=== PATIENT | female | born 1955 | race Caucasian/White ===

== ENCOUNTER 2016-09-22 05:30 | Day surgery (SDC) | payer OTHER ==
--- NOTE | ~2016-09-22 | EGD ---
EGD REPORT [facility] [address] [place] [address] NAME: ISAEL PERALTA : 55 STATUS : REG [facility] PAT#: [id number] AGE: 61 ADM/REG DATE : 09/22/16 MR#: [id number] REPORT SERV DATE: 09/22/16 DICTATED BY: QING DANIELS DATE: 09/22/16 REPORT STATUS : Draft TRANSCRIBED BY: [facility] DATE: 09/22/16 Endoscopy Center Patient Name: Isael Peralta Date of : 1955 Attending MD: MULU DANIELS MD Procedure Date No Time: 09/22/2016 Procedure: Colonoscopy Indications: High risk colon cancer surveillance: Personal history of colonic polyps, Last colonoscopy: March 2012 Referring MD: AMINA FORMAN MD Medicines: See the Anesthesia note for documentation of the administered medications Complications: No immediate complications. Estimated blood loss: None. Procedure: Pre-Anesthesia Assessment: - ASA Grade Assessment: II - A patient with mild systemic disease. After I obtained informed consent, the scope was passed under direct vision. Throughout the procedure, the patient's blood pressure, pulse, and oxygen saturations were monitored continuously. The PCF [id number] was introduced through the anus and advanced to the terminal ileum. The ileocecal valve, appendiceal orifice, terminal ileum and rectum were photographed. The entire colon was examined. The colonoscopy was performed without difficulty. The patient tolerated the procedure well. The quality of the bowel preparation was adequate. Findings: The perianal and digital rectal examinations were normal. The terminal ileum appeared normal. A sessile polyp was found at the hepatic flexure. The polyp was 5 mm in size. The polyp was removed with a cold snare. Resection and retrieval were complete. Non-bleeding internal hemorrhoids were found during retroflexion and were Grade I (internal hemorrhoids that do not prolapse). No other significant abnormalities were identified in a careful examination of the remainder of the colon. Impression: - The examined portion of the ileum was normal. - One 5 mm polyp at the hepatic flexure. Resected and retrieved. - Non-bleeding internal hemorrhoids. Recommendation: - Patient has a contact number available for emergencies. The signs and symptoms of potential delayed EGD REPORT [address] [address] NAME: ISAEL PERALTA : 55 STATUS : REG [facility]#: [id number] AGE: 61 ADM/REG DATE : 09/22/16 MR#: [id number] REPORT SERV DATE: 09/22/16 DICTATED BY: QING DANIELS DATE: 09/22/16 REPORT STATUS : Draft TRANSCRIBED BY: [facility] DATE: 09/22/16 complications were discussed with the patient. Return to normal activities tomorrow. Written discharge instructions were provided to the patient. - Regular diet. - Discharge patient to home. - Continue present medications. - Await pathology results. - Repeat colonoscopy in 5 years for surveillance. Procedure Code(s): --- Professional --- 29195, Colonoscopy, flexible, proximal to splenic flexure; with removal of tumor(s), polyp(s), or other lesion(s) by snare technique Diagnosis Code(s): --- Professional --- K64.0, First degree hemorrhoids D12.3, Benign neoplasm of transverse colon Z86.010, Personal history of colonic polyps CPT copyright 2013 [employer]. All rights reserved. The codes documented in this report are preliminary and upon transcription typist review may be revised to meet current compliance requirements. MULU DANIELS MD 09/22/2016 7:24 AM This report has been signed electronically. Number of Addenda: 0 Note Initiated On: 09/22/2016 6:56 AM Scope Withdrawal Time 0 hours 10 minutes 31 seconds [id number] [id number]
[~2016-09-22 05:30] MED LIST: ALEVE220 MG PO; ASAB PO; BIOTIN10 MG OR; CALTRA600D PO; CENTRUM PO; CLIMARA0.05 MG TD; COZAAR100 MG PO; FISH-EPA1000 MG PO; FLEX PO; GLUCCHONDR PO; IBU800 PO; METANX PO; NEUR100 PO; NEUR400 PO; NEUR600 PO; NORCO1 TAB PO; PENVK250 PO; PRILOSEC40 MG PO; PROBIOTIC PO; REQUIP25 PO; TOPXL25 PO; TOPXL50 PO; VITAMIN D31000 UNIT PO; ZOCOR20 PO; ZYRTEC ALLGY10 MG PO
[2016-10-13] MEDS ORDERED: PRILOSEC40 MG PO (14:10)
[2016-10-13] MEDS ORDERED: BACTRONASA NAS (14:14)
== END 2016-09-22 23:59 | disposition home or self-care (01) ==
LOC: DMU 05:30
PROVIDERS: Internal Medicine Gastroenterology
PROC: 0DBK8ZX Excision of Ascending Colon, Via Natural or Artificial Opening Endoscopic, Diagnostic (ICD-10-PCS; principal; 2016-09-22 07:00)
DX: Z12.11 Encounter for screening for malignant neoplasm of colon (principal); Z86.010 Personal history of colon polyps; Z79.899 Other long term (current) drug therapy; Z79.2 Long term (current) use of antibiotics; Z79.82 Long term (current) use of aspirin; Z79.1 Long term (current) use of non-steroidal anti-inflammatories (NSAID); Z90.710 Acquired absence of both cervix and uterus; Z90.49 Acquired absence of other specified parts of digestive tract; K64.0 First degree hemorrhoids; D12.2 Benign neoplasm of ascending colon; Z98.1 Arthrodesis status; K44.9 Diaphragmatic hernia without obstruction or gangrene; K58.9 Irritable bowel syndrome, unspecified; I10 Essential (primary) hypertension; E89.0 Postprocedural hypothyroidism; E78.00 Pure hypercholesterolemia, unspecified; M19.90 Unspecified osteoarthritis, unspecified site
CPT/HCPCS: 88305; A9270-GY; J0290; J1580

== ENCOUNTER 2016-10-19 10:03 | Inpatient (IN) | payer OTHER ==
[2016-10-11 11:11] LABS: BASOPHILS 0.5 %; BASOPHILS ABSOLUTE 0.03 10/3/uL (0.0-0.16); EOSINOPHILS 3.3 %; EOSINOPHILS ABSOLUTE 0.22 10/3/uL (0.0-0.53); HEMATOCRIT 38.2 % (36.0-48.0); IMMATURE GRANULOCYTES 0.2 %; IMMATURE GRANULOCYTES ABSOLUTE 0.01 10/3/uL (0.0-0.11); LYMPHOCYTES 34.7 %; MEAN CORPUS HGB CONC 31.4 g/dL (32.0-36.0); MEAN PLATELET VOLUME 9.6 fL (9.2-13.0); MONOCYTES 8.6 %; MONOCYTES ABSOLUTE 0.57 10/3/uL (0.21-1.20); NEUTROPHILS 52.7 %; PLATELET COUNT 274 10/3/uL (150-400); RBC DISTRIBUTION WIDTH 13.4 % (12.0-16.0); RED CELL COUNT 4.45 10/6/uL (4.0-5.6); WHITE BLOOD CELLS 6.6 10/3/uL (4.5-10.5)
[2016-10-11 11:17] LABS: MANUAL DIFF NO %; MEAN CORPUSCULAR VOLUME 85.8 fL (80-100)
[2016-10-11 11:28] LABS: INTERNATIONAL NORMAL RATI 1.1 UNITS (-); PROTIME (NOT ORD) 14.3 SEC (12.0-14.5)
[2016-10-11 11:29] LABS: A/G RATIO 1.3 (0.7-1.9); ALBUMIN 4.1 G/DL (3.5-5.0); ALKALINE PHOSPHATASE 80 U/L (45-117); CALCIUM, SERUM 9.6 MG/DL (8.5-10.4); CHLORIDE, SERUM 107 MMOL/L (96-112); CO2 (CARBON DIOXIDE) 29 MMOL/L (24-34); CREATININE 0.61 MG/DL (0.55-1.02); GFR AFRICAN AMERICAN 113 ML/MIN (>=60); GFR NON AFRICAN AMERICAN 98 ML/MIN (>=60); GLOBULIN 3.2 G/DL (2.5-4.1); GLUCOSE, SERUM 103 MG/DL (60-99); POTASSIUM, SERUM 3.8 MMOL/L (3.5-5.3); SGOT(AST) 22 U/L (5-40); SGPT(ALT) 38 U/L (5-65); SODIUM, SERUM 142 MMOL/L (135-148); TOTAL BILIRUBIN 0.5 MG/DL (0-1.2); TOTAL PROTEIN 7.3 G/DL (6.0-8.5)
[2016-10-11 11:30] LABS: BUN (BLOOD UREA NITROGEN) 15 MG/DL (6-23)
[2016-10-11 12:11] LABS: ASCORBIC ACID (UR NOT ORDER) NEG (NEG); BILIRUBIN, URINE NEGATIVE (NEG); KETONE, URINE NEGATIVE (NEG); LEUKOCYTE ESTERASE(NOT OR SMALL (NEG); WBC (NOT ORDERED) (RFLEX) 3 (0-5)
--- NOTE | ~2016-10-19 | DS ---
Discharge Summary [facility] [address] [place]. [address] NAME: ISAEL NEGRO : 55 STATUS : DIS IN PAT#: [id number] AGE: 61 ADM/REG DATE : 10/19/16 MR#: [id number] REPORT SERV DATE: 11/07/16 DICTATED BY: JEANNETTE CHESTER DATE: 11/06/16 REPORT STATUS : Draft TRANSCRIBED BY: OBEY DATE: 11/06/16 Data Collection from hospitalization DISCHARGE DIAGNOSES: 1. Severe bilateral knee degenerative joint disease. 2. Hypertension. 3. Gastroesophageal reflux disease. CONSULTATIONS: None. PROCEDURES PERFORMED: Bilateral posterior stabilized total knee replacement, cemented, 10/19/2016. PATHOLOGY: Bone and soft tissue, right knee, total knee arthroplasty degenerative changes, fatty marrow with medullary fibrosis, synovium with diffuse papillary hyperplasia, no tumor or active inflammation. Bone and soft tissue, left knee, total knee arthroplasty degenerative changes, fatty marrow with medullary fibrosis, synovium with diffuse papillary hyperplasia, no tumor or active inflammation. MEDICATIONS: Neurontin 500 mg twice daily, Cozaar 100 mg at bedtime, ferrous sulfate 300 mg with breakfast and supper, Colace 100 mg twice daily, Theragran tablet without minerals one daily, Toprol-XL 50 mg at bedtime, fish oil 500 mg daily at bedtime, Prilosec 40 mg as needed, pen VK 250 mg twice daily, MiraLAX powder one packet daily, Requip two tablets at bedtime, Florastor one daily, Senokot two tablets at bedtime, Zocor 20 mg at bedtime, Coumadin as directed, Tylenol 650 mg every four hours as needed, Mylanta 30 mL as needed, Dulcolax 15 mg as needed, Flexeril 10 mg every 8 hours as needed, Benadryl 25 mg every 6 hours as needed, Marinol 5 mg every 8 hours as needed, Rosepine 7.5/325 one every 4 hours as needed, milk of magnesia 30 mL as needed, Zofran 4 mg every four hours as needed, and MiraLAX powder one packet twice daily as needed. CONDITION AT DISCHARGE: Upon discharge, she did appear to be doing well and had no complaints. DISPOSITION: She was discharged with transfer to [facility] to continue a regular diet with activity as discussed. She was to follow up with me in the [email or web address] office on 11/02/2016. HOSPITAL COURSE: This 61-year-old female was seen in the clinic with complaints of minor-to- severe intermittent bilateral knee pain. The approximate date of onset was 06/2016. She had stated her pain was not due to an accident or injury. The location of her knee pain was medial and across the patella. Symptoms included weakness, giving way, popping, pain, stiffness, tightness, and swelling. Her pain was intensified by standing too long, walking, lying supine and side-lying, trying to stand from a seated position, and squatting and kneeling in [id number] motion. She had related difficulty with stairs, walking, and getting in and out of a car. Her pain was worse at night upon arising and with activity. History of treatment included Aleve with relief. She denied any prior physical therapy but did state prior injection with relief for one month. She was now admitted for surgery and further treatment. Upon admission to the hospital, she had been taken to the operating room where she did undergo the above procedure. She tolerated this well and was transferred to [address] [address] NAME: ISAEL NEGRO : 55 STATUS : DIS IN PAT#: [id number] AGE: 61 ADM/REG DATE : 10/19/16 MR#: [id number] REPORT SERV DATE: 11/07/16 DICTATED BY: JEANNETTE CHESTER DATE: 11/06/16 REPORT STATUS : Draft TRANSCRIBED BY: OBEY DATE: 11/06/16 the recovery room. On postop day #1, she did appear to be doing well and had no new complaints. She did, however, have some complaints of dizziness and lightheadedness when standing. Her hemoglobin was at 8.5 and hematocrit 26.0. She was continued on her current medications. She had been evaluated by Physical Therapy. On postop day #2, she did still have complaints of dizziness and lightheadedness when standing. Her hemoglobin had dropped back to 7.0, hematocrit 22.1, and INR was at 1.2. She was continued on supportive care and did undergo transfusion with 2 units of packed red blood cells secondary to acute blood loss anemia. She was encouraged to ambulate with physical therapy. On postop day #3, her hemoglobin and hematocrit post transfusion were 8.9 and 26.8 respectively. She did remain in stable condition and was ambulating with physical therapy. On postop day #4, the patient did appear to be okay with rehab placement which was being recommended to her. Her INR was at 1.3 and her incision did look good. She did remain in stable condition, and as she continued to improve, she was then discharged on 10/25/2016 with the above instructions. Information collected by: Brian Dupree. I submit the above information as my discharge summary. JEREMI/MODL Jalil Chester M.D. / [id number] CC: Enrique Dodge M.D. [facility]
--- NOTE | ~2016-10-19 | OP ---
Record Of Operation [facility] [address] [place]. [address] NAME: ISAEL NEGRO : 55 STATUS : ADM IN PAT#: [id number] AGE: 61 ADM/REG DATE : 10/19/16 MR#: [id number] REPORT SERV DATE: 10/20/16 DICTATED BY: JEANNETTE CHESTER DATE: 10/20/16 REPORT STATUS : Draft TRANSCRIBED BY: MODL DATE: 10/20/16 DATE OF PROCEDURE: 10/19/2016 PREOPERATIVE DIAGNOSIS: Severe bilateral knee degenerative joint disease. POSTOPERATIVE DIAGNOSIS: Severe bilateral knee degenerative joint disease. OPERATION: Bilateral posterior stabilized total knee replacement, cemented. SIDE: Right and left. SIZE: See chart. ANESTHESIA: See chart. ESTIMATED BLOOD LOSS: About 10 mL, each knee. TOURNIQUET TIME: Approximately 1 hour and 10 minutes. COMPLICATIONS: None. SPECIMENS: Articular surfaces. PROCEDURE: The patient was appropriately identified and marked. The operative side agreed with the consent form and it was checked by all members of the surgical team. The patient was taken to the operating room and anesthesia was induced per the anesthesiologist. The patient was carefully transferred to the operating table without incident. The patient received appropriate prophylactic antibiotics and a Montes De Oca catheter was placed in the standard sterile technique. The patient was then carefully positioned, padded, prepped and draped in the normal sterile fashion. The operative leg had been appropriately identified and checked by all members of the operating team against the consent form and found to be the correct limb. The patient's lower extremity was then exsanguinated with an Callum wrap and a tourniquet was inflated to 350 mmHg. Sharp dissection was carried out through a straight midline longitudinal incision and electrocautery through the fat. Sharp quad splitting approach was carried out between about the medial 10 percent of the tendon and the lateral 90 percent of the tendon and down around the medial aspect of the patella and then 1 cm medial to the tibial tubercle. The patella was carefully everted and the posterior fat pad was excised and gentle MCL elevation was carried out off the proximal medial tibia subperiosteally. IM guide was placed in the distal femur after using the appropriate drill. The distal femoral cutting guide was held with 2 pins and the distal cut made. Meniscal fragments and the ACL and the PCL were excised with electrocautery, carefully staying anterior to the posterior fat pad. The proximal tibial alignment guide was set appropriately and the proximal tibial cut made. Spacer block verified full extension with excellent mediolateral balance. Sizing guide was used to place 2 drill holes in the distal femur and the four-in-one cutting block was then placed, impacted and checked Record Of Operation [facility] [address] [place]. [address] NAME: ISAEL NEGRO : 55 STATUS : ADM IN PAT#: [id number] AGE: 61 ADM/REG DATE : 10/19/16 MR#: [id number] REPORT SERV DATE: 10/20/16 DICTATED BY: JEANNETTE CHESTER DATE: 10/20/16 REPORT STATUS : Draft TRANSCRIBED BY: OBEY DATE: 10/20/16 to be sure it would not notch with an jackie wing and it was held with 2 pins. The anterior cut, posterior cut, anterior chamfer and posterior chamfer cuts were made. The pins were removed and the block was removed. A posterior release was carried out with a curved 3/4 inch osteotome staying right on the bone posteriorly. The box-cut guide was then placed, impacted and held with 2 pins and a reciprocating saw was used to cut out the box. With the trial components in place, there was excellent medial/lateral balance. The patella was then measured with a caliper, cut first with an oscillating saw and then reamed with a patella reamer. With the trial patella in place, there was excellent patellar tracking. Rotation was marked on the tibia and the tibia prepared with a drill and stamp chisel. All surfaces were then copiously irrigated with pulsatile lavage, carefully dried and then vacuum-mixed cement was pressurized with a cement gun in a doughy phase. The tibial component was placed, impacted and excess cement was removed. The cement was then pressurized in the femur and placed on the posterior runners of the femoral component, which was placed, impacted and excess cement removed and the knee was brought out into extension on a trial spacer. The cement was then pressurized in the patella. Patellar component was then placed, clamped and excess cement was removed. Once all cement was hardened, the knee was taken through range of motion. Further extruded cement was removed with a small osteotome. Then based on the trial inserts, we decided on the actual insert, which was placed in the standard fashion and held with a locking mechanism. The knee was then copiously irrigated and then closed in a layered fashion over a medium Hemovac drain superolaterally with interrupted #1 in the deep fascia, 2-0 subcutaneous and nieves in the skin. The wounds were dressed sterilely and the tourniquet was deflated. After completion of the first knee and discussion with the anesthesiologist, all parameters were acceptable and we decided to proceed with the second knee. Same procedure as that dictated above was carried out on the contralateral knee. The contralateral leg was again appropriately identified and checked by all members of the operating team against the consent form and found to be the correct limb. The patient's lower extremity was then exsanguinated with an Callum wrap and a tourniquet was inflated to 350 mmHg. Sharp dissection was carried out through a straight midline longitudinal incision and electrocautery through the fat. Sharp quad splitting approach was carried out between about the medial 10 percent of the tendon and the lateral 90 percent of the tendon and down around the medial aspect of the patella and then 1 cm medial to the tibial tubercle. The patella was carefully everted and the posterior fat pad was excised and gentle MCL elevation was carried out off the proximal medial tibia subperiosteally. IM guide was placed in the distal femur after using the appropriate drill. The distal femoral cutting guide was held with 2 pins and the distal cut made. Meniscal fragments and the ACL and the PCL were excised with electrocautery, carefully staying anterior to the posterior fat pad. The proximal tibial alignment guide was set appropriately and the proximal tibial cut made. Spacer block verified full extension with excellent mediolateral balance. Sizing guide was used to place 2 drill holes in the distal femur and the four-in-one cutting block was then placed, impacted and checked to be sure it would not notch with an jackie wing and it was held with 2 pins. The anterior cut, posterior cut, anterior chamfer and posterior chamfer cuts were made. The pins were removed and the block was removed. A posterior release was carried out with a curved 3/4 inch osteotome staying right on the bone posteriorly. The box cut guide was then placed, impacted and held with 2 pins and a reciprocating saw was used to Record Of Operation [place] [address] [place]. [address] NAME: ISAEL NEGRO : 55 STATUS : ADM IN PAT#: [id number] AGE: 61 ADM/REG DATE : 10/19/16 MR#: [id number] REPORT SERV DATE: 10/20/16 DICTATED BY: JEANNETTE CHESTER DATE: 10/20/16 REPORT STATUS : Draft TRANSCRIBED BY: OBEY DATE: 10/20/16 cut out the box. With the trial components in place, there was excellent medial/lateral balance. The patella was then measured with a caliper, cut first with an oscillating saw and then reamed with a patella reamer. With the trial patella in place, there was excellent patellar tracking. Rotation was marked on the tibia and the tibia prepared with a drill and stamp chisel. All surfaces were then copiously irrigated with pulsatile lavage, carefully dried and then vacuum-mixed cement was pressurized with a cement gun in a doughy phase. The tibial component was placed, impacted and excess cement was removed. The cement was then pressurized in the femur and placed on the posterior runners of the femoral component, which was placed, impacted and excess cement removed and the knee was brought out into extension on a trial spacer. The cement was then pressurized in the patella. Patellar component was then placed, clamped and excess cement was removed. Once all cement was hardened, the knee was taken through range of motion. Further extruded cement was removed with a small osteotome. Then based on the trial inserts, we decided on the actual insert, which was placed in the standard fashion and held with a locking mechanism. The knee was then copiously irrigated and then closed in a layered fashion over a medium Hemovac drain superolaterally with interrupted #1 in the deep fascia, 2-0 subcutaneous and nieves in the skin. The wounds were dressed sterilely and the tourniquet was deflated. The patient was then awakened and taken to the postanesthesia care unit without incident. All counts were correct at the end of the case. WTB/OBEY Jalil Chester M.D. / [id number] CC: Enrique Dodget Jadon, M.D.
[~2016-10-19 10:03] MED LIST changes: +BACTRONASA NAS
[2016-10-20 06:28] LABS: HEMOGLOBIN 8.5 g/dL (12.0-16.0)
[2016-10-20 06:29] LABS: INTERNATIONAL NORMAL RATI 1.2 UNITS (-); PROTIME (NOT ORD) 15.4 SEC (12.0-14.5)
[2016-10-20 06:40] LABS: BUN (BLOOD UREA NITROGEN) 17 MG/DL (6-23); CALCIUM, SERUM 8.9 MG/DL (8.5-10.4); CHLORIDE, SERUM 103 MMOL/L (96-112); CO2 (CARBON DIOXIDE) 25 MMOL/L (24-34); CREATININE 0.89 MG/DL (0.55-1.02); GFR AFRICAN AMERICAN 81 ML/MIN (>=60); GFR NON AFRICAN AMERICAN 70 ML/MIN (>=60); POTASSIUM, SERUM 4.2 MMOL/L (3.5-5.3); SODIUM, SERUM 137 MMOL/L (135-148)
[2016-10-20 06:41] LABS: GLUCOSE, SERUM 144 MG/DL (60-99)
[2016-10-21 06:08] LABS: HEMATOCRIT 22.1 % (36.0-48.0)
[2016-10-21 06:10] LABS: INTERNATIONAL NORMAL RATI 1.2 UNITS (-); PROTIME (NOT ORD) 15.1 SEC (12.0-14.5)
[2016-10-22 05:58] LABS: BASOPHILS 0.3 %; BASOPHILS ABSOLUTE 0.03 10/3/uL (0.0-0.16); EOSINOPHILS 2.4 %; EOSINOPHILS ABSOLUTE 0.23 10/3/uL (0.0-0.53); IMMATURE GRANULOCYTES 0.6 %; IMMATURE GRANULOCYTES ABSOLUTE 0.06 10/3/uL (0.0-0.11); LYMPHOCYTES 31.2 %; LYMPHOCYTES ABSOLUTE 2.96 10/3/uL (0.67-4.30); MEAN CORPUSCULAR HEMOGLOB 28.7 pg (26.0-34.0); MEAN CORPUSCULAR VOLUME 86.5 fL (80-100); MEAN PLATELET VOLUME 9.8 fL (9.2-13.0); MONOCYTES ABSOLUTE 1.14 10/3/uL (0.21-1.20); NEUTROPHILS 53.5 %; NEUTROPHILS ABSOLUTE 5.06 10/3/uL (2.02-8.40); PLATELET COUNT 205 10/3/uL (150-400); RBC DISTRIBUTION WIDTH 13.7 % (12.0-16.0)
[2016-10-22 06:00] LABS: HEMATOCRIT 26.8 % (36.0-48.0); HEMOGLOBIN 8.9 g/dL (12.0-16.0); MANUAL DIFF NO %; MEAN CORPUS HGB CONC 33.2 g/dL (32.0-36.0); WHITE BLOOD CELLS 9.5 10/3/uL (4.5-10.5)
[2016-10-22 06:11] LABS: BUN (BLOOD UREA NITROGEN) 17 MG/DL (6-23); CALCIUM, SERUM 8.5 MG/DL (8.5-10.4); CHLORIDE, SERUM 104 MMOL/L (96-112); CO2 (CARBON DIOXIDE) 30 MMOL/L (24-34); CREATININE 0.66 MG/DL (0.55-1.02); GFR AFRICAN AMERICAN 111 ML/MIN (>=60); GFR NON AFRICAN AMERICAN 95 ML/MIN (>=60); GLUCOSE, SERUM 103 MG/DL (60-99); POTASSIUM, SERUM 4.2 MMOL/L (3.5-5.3); SODIUM, SERUM 139 MMOL/L (135-148)
[2016-10-22 06:12] LABS: INTERNATIONAL NORMAL RATI 1.3 UNITS (-)
[2016-10-23 04:33] LABS: HEMATOCRIT 28.5 % (36.0-48.0); HEMOGLOBIN 9.3 g/dL (12.0-16.0)
[2016-10-23 04:44] LABS: INTERNATIONAL NORMAL RATI 1.3 UNITS (-); PROTIME (NOT ORD) 15.9 SEC (12.0-14.5)
[2016-10-24 04:24] LABS: HEMATOCRIT 29.1 % (36.0-48.0); HEMOGLOBIN 9.5 g/dL (12.0-16.0)
[2016-10-24 04:37] LABS: INTERNATIONAL NORMAL RATI 1.3 UNITS (-)
[2016-10-25 05:14] LABS: INTERNATIONAL NORMAL RATI 1.3 UNITS (-)
== END 2016-10-25 16:00 | DRG 462 ==
LOC: SDC/OF 10:03 → PACU 16:09 → 3SO 17:51
PROVIDERS: Nurse Practitioner Acute Care; Specialist
PROC: 0SRC0J9 Replacement of Right Knee Joint with Synthetic Substitute, Cemented, Open Approach (ICD-10-PCS; 2016-10-19)
PROC: 0SRD0J9 Replacement of Left Knee Joint with Synthetic Substitute, Cemented, Open Approach (ICD-10-PCS; principal; 2016-10-19 12:15)
PROC: 30233N1 Transfusion of Nonautologous Red Blood Cells into Peripheral Vein, Percutaneous Approach (ICD-10-PCS; 2016-10-21)
DX: M17.0 Bilateral primary osteoarthritis of knee (principal); D62 Acute posthemorrhagic anemia; I10 Essential (primary) hypertension; K21.9 Gastro-esophageal reflux disease without esophagitis; E66.9 Obesity, unspecified; G62.9 Polyneuropathy, unspecified; E78.5 Hyperlipidemia, unspecified; R11.2 Nausea with vomiting, unspecified; B95.8 Unspecified staphylococcus as the cause of diseases classified elsewhere; Z79.82 Long term (current) use of aspirin; Z86.14 Personal history of Methicillin resistant Staphylococcus aureus infection; Z80.9 Family history of malignant neoplasm, unspecified; Z87.891 Personal history of nicotine dependence; Z68.33 Body mass index [BMI] 33.0-33.9, adult
CPT/HCPCS: 36415; 71020; 80048; 80053; 81001; 85014; 85018; 85025; 85610; 86850; 86900; 86901; 86920; 87086; 87641; 88305; 88311; 93005; 97110-GP; 97116-GP; 97161-GP; 97165-GO; 97535-GO; A9270-GY; C1776; J0690; J1170; J1885; J2250; J2270; J2405; J2795; J3010; J3370; P9016